=== PATIENT | male | born 1960 | race Caucasian/White ===

== ENCOUNTER → 2017-08-05 13:38 | Outpatient (CLI) | payer BC, SELFPAY | PROVIDERS: PCP Family Medicine; Visit Provider Family Medicine | DX: R00.0 Tachycardia, unspecified (principal) | CPT/HCPCS: 93005 ==

== ENCOUNTER → 2018-07-06 07:49 | Outpatient (CLI) | payer BC, SELFPAY ==
--- NOTE | 2018-07-06 07:53 | CT_ITS ---
EXAM: CT LUNG LOW DOSE WO CONTRAST TECHNIQUE: The exam was performed on a GE Light Speed [address] scanner using 3.0 mGy CTDI. A low dose helical CT CHEST was performed on a multi-detector scanner. All CT scans at this facility use one or more dose reduction techniques, viz.: automated exposure control, ma/kV adjustment per patient size (including targeted exams where dose is matched to indication, i.e. head) or iterative reconstruction technique. The LDCT was performed in a facility that meets the criteria for the screening program. Data regarding this exam was submitted to ACR which is an approved registry. The order for this exam indicates that it came as a result of a lung cancer screening counseling shard decision-making visit that included all the elements required of such a visit including smoking cessation. The radiologist interpreting this exam meets the CMS criteria for the LDCT lung cancer screening program. The exam is reported using the Lung-RADS classification scale and reported to the ACR registry. NOTE: This study was performed for the specific purposes of lung cancer screening and is not an alternative to diagnostic chest CT. RADIATION DOSE: CTDI vol(CT dose Index-volume) = 2.9mGy DLP (Dose Length Product) = 114.9 mGy-cm COMPARISON: CT chest September 19, 2016 CT chest would also a March 2016 CT chest screening study HISTORY: 1.5 packs per day for 40 years = 60 pack-year history with smoking 3 years ago. Patient asymptomatic with no signs or symptoms of lung cancer FINDINGS: Indeterminate or Suspicious Lung Nodules(Category3-4B): None Indeterminate/Non-actionable Nodules(Category2): None Benign nodules(Category1)None LUNG PARENCHYMA Emphysema: Mild/moderate centrilobular emphysematous changes again noted and stable Airways disease borderline to mild central airway thickening centrally mediastinum. Lung Nodule Evaluation & Search: Stable small fissure-based nodule/node axial image 64./-not of concern and stable. It measured over 10 mm x 1.5 mm.. Other small scattered nodes in areas of density remain stable bilaterally. Several of these are fairly dense for their small size and I suspect early granulomas lesions... There is continued more definite calcification reflecting benign granuloma. Also There are stability since prior studies is reassuring as well. Right lung base, RLL: 6 mm calcified granuloma at the posterior right lung base with adjacent scarring.-., Axial image 69.. & Minor scarring and minimal stable stippled granulomatous scarring continues inferior to this-unchanged.. Axial 76. No new nodules are evident.No effusions or infiltrates. Upper abdominal images once again show a 2.9 cm left adrenal nodule consistentwith an adenoma unchanged. No acute bony anomalies. IMPRESSION: 1. .Overall stable CT appearance of the chest. No change of several small bilateral pulmonary nodules. No areas of significant concern 2 Emphysema. 3 Left adrenal adenoma. 4. Coronary artery disease. Recommendations: 12 month follow-up : . Lung RADS Category: 2
== END ==
PROVIDERS: PCP Family Medicine; Visit Provider Family Medicine
DX: Z12.2 Encounter for screening for malignant neoplasm of respiratory organs (principal); Z79.899 Other long term (current) drug therapy

== ENCOUNTER → 2018-08-23 09:49 | Outpatient (CLI) | payer BC, SELFPAY ==
[2018-08-24 15:09] LABS: Albumin 4.1 g/dL (2.9-4.4); Alpha-1-Globulin 0.3 g/dL (0.0-0.4); Gamma Globulin 2.6 g/dL (0.4-1.8); Protein, Total 9.2 g/dL (6.0-8.5)
== END ==
PROVIDERS: Visit Provider Internal Medicine Rheumatology
DX: E23.1 Drug-induced hypopituitarism (principal); L93.1 Subacute cutaneous lupus erythematosus; M19.049 Primary osteoarthritis, unspecified hand
CPT/HCPCS: 36415; 84155; 84165; 86334

== ENCOUNTER → 2019-08-15 10:28 | Outpatient (CLI) | payer BC, SELFPAY ==
[2019-08-16 15:34] LABS: Albumin 3.2 g/dL (2.9-4.4); Alpha-1-Globulin 0.3 g/dL (0.0-0.4); Alpha-2-Globulin 1.1 g/dL (0.4-1.0); Gamma Globulin 2.6 g/dL (0.4-1.8); Protein, Total 8.4 g/dL (6.0-8.5)
== END ==
PROVIDERS: Visit Provider Internal Medicine Rheumatology
DX: E21.3 Hyperparathyroidism, unspecified (principal); L93.1 Subacute cutaneous lupus erythematosus; M19.049 Primary osteoarthritis, unspecified hand
CPT/HCPCS: 36415; 84155; 84165; 86334

== ENCOUNTER → 2020-02-07 08:17 | Outpatient (CLI) | payer BC, SELFPAY ==
--- NOTE | 2020-02-07 08:30 | CT_ITS ---
PROCEDURE: CT LUNG SCREENING CLINICAL INDICATION: H/O NICOTINE DEPENDENCE Former smoker Quit 4 years ago 60 pack year smoking history emphysema prior 07/06/18 COMPARISON: CT LUNGSCREEN CT lung screening from 07/06/2018 TECHNIQUE: The exam was performed on a GE Light Speed [address] scanner using 2.90 mGy CTDI. A low dose helical CT CHEST was performed on a multi-detector scanner. All CT scans at the facility use one or more dose reduction, viz: automated exposure control, ma/kV adjustment per patient size (including targeted exams where dose is matched to indication, i.e. head), or iterative reconstruction technique. The LDCT was performed in a facility that meets the criteria for the screening program. Data regarding this exam was submitted to ACR which is an approved registry. The order for this exam indicates that it came as a result of a lung cancer screening counseling shard decision-making visit that included all the elements required of such a visit including smoking cessation. The radiologist interpreting this exam meets the [facility] criteria for the LDCT lung cancer screening program. The exam is reported using the Lung-RADS classification scale and reported to the ACR registry. NOTE: This study was performed for the specific purposes of lung cancer screening and is not an alternative to diagnostic chest CT. RADIATION DOSE: CTDI vol(CT dose Index-volume) = 2.90mG DLP (Dose Length Product) = 118.29 mGcm FINDINGS: COPD with scattered areas of scarring. There is 11 mm fissural nodule involving the major fissure inferiorly on the right which is stable. Calcified granuloma is present in the right lower lobe. There is bronchial thickening. A small bulla is present in the left upper lobe anteriorly. Faint tree in bud opacification noted in the left lower lobe and to lesser extent in the right lower lobe posteriorly. These changes are new on the left and unchanged on the right. OTHER FINDINGS: Extensive coronary artery calcification. 2.9 cm left adrenal nodule stable consistent with an adenoma. IMPRESSION: Lung-RADS Category 3 Probably Benign There are numerous small opacities in the left lower lobe which have developed since the previous exam and may represent an area of pneumonia with tree in bud configuration. Six-month follow-up may confirm stability or resolution. Follow-up: [address] Chest without and with contrast. Dictated by: Tigre Blanco MD 02/12/2020 09:08 Tigre Blanco MD in [place] 02/12/2020 09:08
== END ==
PROVIDERS: PCP Family Medicine; Visit Provider Family Medicine
DX: Z87.891 Personal history of nicotine dependence (principal); Z12.11 Encounter for screening for malignant neoplasm of colon

== ENCOUNTER → 2020-08-10 13:04 | Outpatient (CLI) | payer BC, SELFPAY ==
--- NOTE | 2020-08-10 13:08 | CT_ITS ---
PROCEDURE: CT CHEST WO/W CON CLINCAL INDICATION: PULMONARY NODULES COMPARISON: CT LDCTLCAS LDCT FOR LUNG CA SCREEN from 03/18/[address] LUNG SCREENING from 02/07/2020 TECHNIQUE: IV Contrast: 75ml Isovue 370 Axial images obtained with sagittal and coronal reformats. All CT scans at the facility use one or more dose reduction, viz: automated exposure control, ma/kV adjustment per patient size (including targeted exams where dose is matched to indication, i.e. head), or iterative reconstruction technique. FINDINGS: No mediastinal or mass or adenopathy. Coronary artery calcifications are. COPD changes a. Stable fissural nodule in the major fissure on right. Old granulomatous disease. Bronchial thickening. Tree-in-bud opacification in the right lower lobe posteriorly in the left lower lobe posteriorly. The opacification is slightly progressed in the left lower lobe with some consolidation and/or volume loss in the left lung base posteriorly and medially. No change 6 mm nodular opacity within the lingula inferiorly. No effusions or suspicious nodules. There are mildly prominent axillary lymph nodes on both sides which appears slightly larger. Left adrenal gland remains enlarged at 3 cm with some small central coarse calcification unchanged. The density of the lesion suggest an adenoma IMPRESSION: 1. Continued bilateral lower lobe tree-in-bud opacification slightly progressed on the left with some consolidation in the left lung base posteriorly and medially. These findings are consistent with chronic pneumonia which is slightly progressed on the left. 2. COPD with old granulomatous disease 3. No change left adrenal nodule consistent with an adenoma 4. Mildly prominent axillary lymph nodes slightly increased in size Dictated by: Tigre Blanco MD 08/11/2020 08:36 Tigre Blanco MD in [place] 08/11/2020 08:36
== END ==
PROVIDERS: PCP Family Medicine; Visit Provider Family Medicine
DX: R91.8 Other nonspecific abnormal finding of lung field (principal)
CPT/HCPCS: 71270; Q9967

== ENCOUNTER → 2020-08-20 08:55 | Outpatient (CLI) | payer BC, SELFPAY ==
[2020-08-20 10:29] LABS: Coronavirus 19 IgG Antibody Positive (Negative); Coronavirus 19 IgM Antibody Negative (Negative)
== END ==
PROVIDERS: Visit Provider Surgery
DX: Z01.812 Encounter for preprocedural laboratory examination (principal); Z20.822 Contact with and (suspected) exposure to COVID-19; Z12.11 Encounter for screening for malignant neoplasm of colon
CPT/HCPCS: 86328

== ENCOUNTER 2020-08-22 06:18 | Day surgery (SDC) | payer BC, SELFPAY ==
[2020-08-15 13:23] VITALS: BMI 26.4
[2020-08-22 06:55] VITALS: BP 161/88; PULSE 107; RESP 18; TEMP 36.6; O2SAT 96
[2020-08-22 07:15] LABS: POC Glucose,Bedside 123 (70-110)
[2020-08-22 07:29] VITALS: O2SAT 96
--- NOTE | 2020-08-22 07:57 | P.PN_ITS ---
[facility] Anesthesia Checklist - Patient Identification Patient Identification: Arm Band - Structural Data Admitted From: Home Planned Operative Procedure/s: colonoscopy Consent for Planned Operative Procedure(s) Verified: Yes Verified Documents: Surgical Consent, History and Physical - NPO Status Verified Time NPO: 00:00 - Additional verifications Anesthesia Reactions: No - Airway Assessment C-Spine Mobility Assessed: Yes (mp2) TMJ Mobility Assessed: Yes Dentition: Good Dentition - Neurological Assessment Level of Consciousness: Awake, Alert - Anesthesia Plan Anesthesia Risk discussed: Yes Anesthesia Plan: Verified ASA Class: II Anesthesia Type: MAC [facility] History I have reviewed the patient's past medical history: Yes Medical History: Reports:: Diabetes Mellitus Type 2, Hypertension Denies:: Cancer, Diabetes Mellitus Type 1, MRSA, Seizures *Have you ever received a pneumonia vaccine?: No *Have you received a flu vaccine this season?: No Other Medical History: Reports: Thyroid Disease Anesthesia experience/problems:: nac Other Surgeries: Yes: Colonoscopy Amputation: No Fractures: No - *Social History Smoking Status: Never smoker Alcohol Intake: current Alcohol Intake Frequency:: 0-2 drinks per day Substance Use Type: denies use *Occupational Status:: retired Housing: house *Travel in the last 8 weeks: None Family Hx:: No significant family history
[2020-08-22 08:15] VITALS: BP 92/44; PULSE 92; RESP 18; O2SAT 96
--- NOTE | 2020-08-22 08:19 | HMH.SCOPE ---
- Procedure: Date: 08/22/20 Patient Date of :: 1960 Procedure Performed:: Total colonoscopy with polypectomy by snare and biopsy forceps Indications:: Patient is a 60-year-old male who presents for follow-up colonoscopy. I had performed colonoscopy on 07/06/2009 at which time he had a sessile serrated adenoma and several hyperplastic polyps removed. Follow-up colonoscopy on 07/20/2012 revealed once again sessile serrated adenoma and several hyperplastic polyps. Colonoscopy on 11/06/2015 revealed a tubular adenoma in the descending colon, couple of hyperplastic polyps, and benign inflamed fibroepithelial anal polyp. Performing Provider:: Leo Martinez MD Referring Provider:: Jayson Beatty MD Sedation:: Propofol Procedure:: Adequate intravenous sedation was achieved. Digital examination was performed which was unremarkable. Variable stiffness Olympus colonoscope was inserted via the anus. It was advanced to the cecum. There was some minor redundancy and floppiness of the sigmoid colon. Ileocecal valve and appendiceal orifice were clearly identified. Preparation was fair to good as there was some undigested vegetable matter within the colon. Irrigation and suctioning was performed as needed. Within the cecum there is a tiny diminutive polyp removed with cold biopsy forceps. In the ascending colon just distal to the ileocecal valve there was a small adenomatous appearing polyp removed with cold biopsy forceps. There was an additional ascending colon polyp removed with cold biopsy forceps. In the descending colon there was a moderate ridge polyp removed in a piecemeal fashion using cold cutting snare. In the distal sigmoid colon there was a hyperplastic appearing polyp removed with cold biopsy forceps. Retroflexion revealed no evidence of any pathologic internal hemorrhoids. Colonoscope was withdrawn. Findings:: Polyps as noted above Recommendations:: Follow-up will be pending the pathology findings. Possibly 3 years Complications:: None immediately apparent Estimated blood obtained (mL): 2
[2020-08-22 08:25] VITALS: BP 101/42; PULSE 78; RESP 20; O2SAT 95
[2020-08-22 08:35] VITALS: BP 102/59; PULSE 87; RESP 18; O2SAT 95
[2020-08-22 08:45] VITALS: BP 114/63; PULSE 78; RESP 18; TEMP 36.3; O2SAT 97
== END 2020-08-22 09:00 | disposition home or self-care (01) ==
LOC: OUTP 06:19
PROVIDERS: PCP Family Medicine; Visit Provider Surgery
PROC: 0DJD8ZZ Inspection of Lower Intestinal Tract, Via Natural or Artificial Opening Endoscopic (ICD-10-PCS; CPT 45385; principal; 2020-08-22 07:30)
DX: Z12.11 Encounter for screening for malignant neoplasm of colon (principal); Z86.010 Personal history of colon polyps; K63.5 Polyp of colon; E11.9 Type 2 diabetes mellitus without complications; I10 Essential (primary) hypertension; E07.9 Disorder of thyroid, unspecified; Z79.899 Other long term (current) drug therapy
CPT/HCPCS: 45385; 45380; 82962

== ENCOUNTER 2022-10-10 09:23 | Day surgery (SDC) | payer BC, SELFPAY ==
[2022-10-09 09:30] VITALS: BMI 24.5
[2022-10-10] VITALS (7 sets, daily range): BP systolic 77–182; BP diastolic 49–88; PULSE 87–115; RESP 18–19; TEMP 36.4–36.7; O2SAT 90–99
--- NOTE | 2022-10-10 09:59 | P.PN_ITS ---
[facility] Disclaimer: The information contained in this section may have been updated after the patient was seen, as this information can be updated by other users. Medical History Diabetes mellitus, type 2 Hyperlipidemia Hypertension Hypothyroid Sleep apnea Family History Other Family history of diabetes mellitus type II Social History Smoking Status: Current some day smoker alcohol intake: current substance use type: denies use current occupational status: retired Travel in the last 8 weeks: None housing: house current occupational exposures/hazards: No [facility] Anesthesia Checklist Patient Identification Patient Identification: Arm Band and Verbal (Name & ) Structural Data Admitted From: Home Planned Operative Procedure/s: Colonoscopy Consent for Planned Operative Procedure(s) Verified: Yes NPO Status Verified Time NPO: 00:00 Additional verifications Anesthesia Reactions: No Airway Assessment C-Spine Mobility Assessed: Yes TMJ Mobility Assessed: Yes Dentition: Good Dentition Neurological Assessment Level of Consciousness: Awake Hx Seizures: No Numbness or tingling in extremities: No Anesthesia Plan Anesthesia Risk discussed: Yes Anesthesia Plan: Verified ASA Class: II Anesthesia Type: MAC
--- NOTE | 2022-10-10 11:11 | HMH.SCOPE ---
Procedure: Date: 10/10/22 Patient Date of :: 1960 Procedure Performed:: Total colonoscopy to terminal ileum with polypectomy using snare and biopsy Indications:: Patient is a 62-year-old male whom I had performed previous colonoscopies on. I had performed colonoscopy on 07/06/2009 at which time he had a sessile serrated adenoma and several hyperplastic polyps removed. Follow-up colonoscopy on 07/20/2012 revealed once again sessile serrated adenoma and several hyperplastic polyps. Colonoscopy on 11/06/2015 revealed a tubular adenoma in the descending colon, couple of hyperplastic polyps, and benign inflamed fibroepithelial anal polyp. Most recent colonoscopy revealed a sending tubular adenoma x2 and a couple of left-sided hyperplastic polyps. Last colonoscopy was done on 08/06/2020. Given the tubular adenomas 3-year follow-up colonoscopy was recommended. Performing Provider:: Leo Martinez MD Referring Provider:: Jayson Beatty MD Sedation:: MAC sedation Procedure:: Patient history was obtained and appropriate physical examination was performed. Patient's medications and allergies were reviewed. Informed consent was obtained after explaining the benefits, alternatives, and risks of the procedure including, but not limited to, bleeding, perforation, missed lesions, and adverse reaction to anesthesia medications. Patient was transported to endoscopy procedure room. Patient was connected to monitoring devices. Throughout the procedure the patient's blood pressure, pulse, and oxygen saturations were monitored continuously. Patient identification and planned procedure were verified by the staff. Patient was positioned in lateral decubitus position. Digital anorectal exam was performed. Variable stiffness Olympus colonoscope was inserted and advanced under direct visualization to the cecum. Adequacy of the colonic preparation was noted. The colonoscope was advanced a short distance into the terminal ileum. The colonoscope was then slowly withdrawn while carefully examining the color, texture, anatomy, and integrity of the mucosoa circumferentially. Within the rectum retroflexion was performed. Colonoscope was then withdrawn. . . There was some liquid stool with particulate debris which was able to be cleared. In the cecum there was a small oblong polyp removed with cold snare. In the descending colon there was several millimeter adenomatous appearing polyp removed with cold snare. The rectosigmoid region there was a hyperplastic appearing polyp removed with biopsy forceps. Findings:: Polyps as noted above Recommendations:: Follow-up colonoscopy pending pathology. Likely 3 to 5 years Complications:: None immediate Estimated blood obtained (mL): 1 Colonoscopy Component Colonoscopy Component Was a colonoscopy performed during today's procedure?: Yes Recommended follow up colonoscopy of at least 10 years?: Yes If no, follow up colonoscopy recommended in ___ years?: Unclear Reason for not recommending >/= 10 yr follow-up interval?: Polyp pathology
--- NOTE | 2022-10-10 11:27 | SUR.PHASEII ---
Pt arrived to post op with oral airway and mask 5L 02. BP 79/49. Unresponsive at this time. Hayden Campbell PRODUCT TEST ENGINEER at bedside.
--- NOTE | 2022-10-10 12:00 | SUR.PHASEII ---
Verified that Dr. Juan cope for pt to continue medications at home with no changes.
--- NOTE | 2022-10-10 12:00 | SUR.PHASEII ---
Reported hypotension and pt denies dizziness or any abnormal symptoms to Shahnaz STACY. Said is absolutely fine with pt being discharged. Instructed pt to move slowly, report any dizziness or signs of syncope to PCP or Dr. Martinez, verbalized understanding.
[2022-10-11 09:12] LABS: POC Glucose,Bedside 106 (70-110)
== END 2022-10-10 12:10 | disposition home or self-care (01) ==
PROVIDERS: PCP Family Medicine; Visit Provider Surgery
PROC: 0DJD8ZZ Inspection of Lower Intestinal Tract, Via Natural or Artificial Opening Endoscopic (ICD-10-PCS; CPT 45385; principal; 2022-10-10 10:30)
DX: Z12.11 Encounter for screening for malignant neoplasm of colon (principal); D12.0 Benign neoplasm of cecum; D12.4 Benign neoplasm of descending colon; K62.3 Rectal prolapse; E11.9 Type 2 diabetes mellitus without complications
CPT/HCPCS: 45385; 45380; 82962

== ENCOUNTER 2023-07-17 10:26 | Outpatient (CLI) | payer BC, SELFPAY ==
--- NOTE | 2023-07-17 10:29 | XR_ITS ---
FINAL REPORT CLINICAL HISTORY: OPEN WOUND RT FOOT,ABSCESS,TYPE II DIABETES states he cut right foot in May, wound not healing. FINDINGS: RIGHT FOOT Three views demonstrate no acute fracture or dislocation. There is a subchondral cyst in the first proximal phalanx. No acute bony erosion is identified. The joint spaces appear normal. No acute soft tissue abnormality is seen. IMPRESSION: No acute bony abnormality. Reviewed, Interpreted and Dictated by Leo Saini III, MD Transcribed by Rox Garcia Authenticated and . [facility]
== END 2023-07-17 23:59 ==
PROVIDERS: PCP Family Medicine; Visit Provider Family Medicine
DX: M79.671 Pain in right foot (principal); L02.611 Cutaneous abscess of right foot; S91.301A Unspecified open wound, right foot, initial encounter; E11.9 Type 2 diabetes mellitus without complications
CPT/HCPCS: 73630

== ENCOUNTER 2023-07-20 11:08 | Outpatient (CLI) | payer BC, SELFPAY ==
[2023-07-20 11:49] LABS: Basophils # 0.1 K/mm3 (0-0.2); Basophils % 0.9 % (0.1-2.0); Eosinophils # 0.1 K/mm3 (0.0-0.4); Eosinophils % 1.1 % (0.1-12.0); Hematocrit 47.9 % (42.0-52.0); Hemoglobin 15.8 g/dL (14.1-18.0); Lymphocytes # 2.8 K/mm3 (0.7-4.5); Lymphocytes % 30.5 % (10-50); Mean Corpuscular Hemoglobin 31.2 pg (27.0-31.2); Mean Corpuscular Volume 94.7 fl (80-94); Mean Platelet Volume 7.6 fl (7.4-10.4); Monocytes # 0.6 K/mm3 (0.1-1.0); Monocytes % 6.8 % (1.7-9.3); Neutrophils # 5.6 K/mm3 (1.8-7.8); Neutrophils % 60.6 % (37.0-80.0); Platelet Count 255 K/mm3 (142-424); Red Blood Count 5.05 M/mm3 (4.60-6.20); Red Cell Distribution Width 14.3 % (11.5-17.5); White Blood Count 9.2 K/mm3 (4.8-10.8)
[2023-07-20 12:18] LABS: Alanine Aminotransferase 22 U/L (12-78); Albumin Level 4.3 g/dl (3.5-5.0); Alkaline Phosphatase 82 U/L (38-126); Anion Gap 13.1 mEq/L (5-15); Aspartate Amino Transferase 33 U/L (17-59); Bilirubin,Total 0.5 mg/dl (0.2-1.3); Blood Urea Nitrogen 12 mg/dl (9-20); Carbon Dioxide 25 mmol/L (22.0-30.0); Chloride 106 mmol/L (98-107); Estimated Glomerular Filt Rate 114 ml/min (>60); GFR (African American) 137 ML/MIN (>60); Globulin 4.2 g/dL (1.3-3.2); Glucose 161 mg/dl (74-100); Potassium 4.1 mmoL/L (3.5-5.1); Sodium 140 mmol/L (136-145); Total Protein,Serum 8.5 g/dl (6.3-8.2)
[2023-07-20 12:21] LABS: Erythrocyte Sedimentation Rate 16 mm/hr (0-20)
[2023-07-20 12:23] LABS: C-Reactive Protein 1.5 mg/L (0-4)
== END 2023-07-20 23:59 ==
LOC: LAB 11:09
PROVIDERS: PCP Family Medicine; Visit Provider Podiatrist
DX: E11.621 Type 2 diabetes mellitus with foot ulcer (principal); S91.301A Unspecified open wound, right foot, initial encounter
CPT/HCPCS: 36415; 80053; 83036; 85025; 85651; 86140

== ENCOUNTER 2024-05-31 11:07 | Outpatient (CLI) | payer MEDICARE, SELFPAY ==
--- NOTE | 2024-05-31 11:12 | XR_ITS ---
FINAL REPORT CLINICAL HISTORY: HAND WEAKNESS FINDINGS: AP, lateral and oblique views of the right hand were obtained. There is no prior exam for comparison. There is no acute fracture or dislocation. There is mild multi joint degenerative disease. Normal mineralization of the bones is noted. The soft tissues are normal. IMPRESSION: Mild degenerative change without acute osseous abnormality of the right hand. Reviewed, Interpreted and Dictated by Letty Dotson MD Transcribed by Seda Cotter Authenticated and [facility]
== END 2024-05-31 23:59 | disposition home or self-care (01) ==
LOC: RAD 11:08
PROVIDERS: PCP Family Medicine; Visit Provider Family Medicine
DX: R29.898 Other symptoms and signs involving the musculoskeletal system (principal)
CPT/HCPCS: 73130

== ENCOUNTER 2024-09-13 09:30 | Outpatient (CLI) | payer MEDICARE, SELFPAY ==
--- OUTSIDE RECORDS SUMMARY | 2024-09-14 10:33 | XMS_ITS ---
Author Organization Unknown TREATMENT PLAN Planned Care Start Date Provider Encounter for Check-up [id number] [facility]
== END 2024-09-13 23:59 | disposition home or self-care (01) ==
LOC: LAB.DROPOF 09-14 10:30
PROVIDERS: PCP Podiatrist; Visit Provider Podiatrist
DX: B35.1 Tinea unguium (principal); L84 Corns and callosities; L03.115 Cellulitis of right lower limb
CPT/HCPCS: 87070; 87102; 87205; 87206; 87220